=== PATIENT | male | born 2000 | race Caucasian/White ===

== ENCOUNTER → 2023-10-02 09:46 | Outpatient (REF) | payer BC, SELFPAY | LOC: RAD 09:46 | PROVIDERS: ATTENDING PHYSICIAN Physician Assistant | DX: M25.571 Pain in right ankle and joints of right foot (principal) | CPT/HCPCS: 73610 ==

== ENCOUNTER → 2023-12-15 15:54 | Outpatient (REF) | payer BC, SELFPAY | LOC: RAD 15:54 | PROVIDERS: ATTENDING PHYSICIAN Student in an Organized Health Care Education/Training Program; FAMILY PHYSICIAN Family Medicine | DX: H05.50 Retained (old) foreign body following penetrating wound of unspecified orbit (principal) | CPT/HCPCS: 70030 ==

== ENCOUNTER → 2024-02-08 17:25 | Outpatient (REF) | payer BC, SELFPAY | LOC: RAD 17:25 | PROVIDERS: ATTENDING PHYSICIAN Student in an Organized Health Care Education/Training Program; FAMILY PHYSICIAN Family Medicine | DX: M25.571 Pain in right ankle and joints of right foot (principal) | CPT/HCPCS: 73700 ==

== ENCOUNTER 2024-03-07 06:29 | Day surgery (SDC) | payer BC, SELFPAY ==
[2024-03-07] VITALS (8 sets, daily range): BP systolic 110–130; BP diastolic 67–89; BMI 16.7
[2024-03-07] MEDS: CELEBREX 200 MG PO (07:46)
[2024-03-07] MEDS: TYLENOL 1000 MG PO (07:46)
[2024-03-07] MEDS: NORMOSOL-R 1000 IV (07:48)
== END 2024-03-07 12:38 | disposition home or self-care (01) ==
LOC: SDS 06:29
PROVIDERS: ATTENDING PHYSICIAN Student in an Organized Health Care Education/Training Program
DX: T84.84XA Pain due to internal orthopedic prosthetic devices, implants and grafts, initial encounter (principal); M24.574 Contracture, right foot; M65.871 Other synovitis and tenosynovitis, right ankle and foot; M25.371 Other instability, right ankle; Y83.1 Surgical operation with implant of artificial internal device as the cause of abnormal reaction of the patient, or of later complication, without mention of misadventure at the time of the procedure
CPT/HCPCS: 27829; 20680; 29898; 73600; 76000; C1713